=== PATIENT | male | born 1955 | race Caucasian/White ===

== ENCOUNTER → 2019-01-17 09:41 | Outpatient (CLI) | payer BC, SELFPAY ==
--- NOTE | 2019-01-17 09:44 | MR_ITS ---
PROCEDURE: MR LUMBAR SPINE WO CON CLINICAL INDICATION: LEFT LUMBAR RADICULOPATHY Lumbar radiculopathy, left leg tingling and weakness, low back pain the COMPARISON: No exams were available for comparison TECHNIQUE: Standard multiplanar multiecho sequences are performed without contrast. 3-D MIP and myelographic images are also rendered and reviewed FINDINGS: Spinal cord ends at the T12-L1 level. L1-L2: Unremarkable. L2-L3: Minimal bulging disc with mild facet and ligamentum hypertrophy. L3-L4: Mild bulging disc with facet ligamentum hypertrophy. L4-5: Bulging disc with moderate facet and ligamentum hypertrophy with bilateral lateral recess and foraminal narrowing with impingement upon both L5 nerve roots within the lateral recess bilaterally. L5-S1: Mild concentric bulging disc along with facet ligamentum hypertrophy with mild bilateral foraminal narrowing. No spinal stenosis or extruded herniated disc evident. IMPRESSION: 1. L2-L3: Minimal bulging disc with mild facet and ligamentum hypertrophy. 2. L3-L4: Mild bulging disc with facet ligamentum hypertrophy. 3. The L4-5: Bulging disc with moderate facet and ligamentum hypertrophy with bilateral lateral recess and foraminal narrowing with impingement upon both L5 nerve roots within the lateral recess bilaterally. 4. L5-S1: Mild concentric bulging disc along with facet ligamentum hypertrophy with mild bilateral foraminal narrowing. 5. No spinal stenosis or extruded herniated disc evident. Dictated by: Jesse Myers MD 01/19/2019 09:44 Electronically signed by Jesse Myers MD in [place] 01/19/2019 09:44
== END ==
PROVIDERS: PCP Family Medicine; Visit Provider Family Medicine
DX: M54.16 Radiculopathy, lumbar region (principal)
CPT/HCPCS: 72148; 76376

== ENCOUNTER → 2020-02-25 08:30 | Outpatient (CLI) | payer BC, SELFPAY ==
[2020-02-25 08:57] LABS: Basophils # 0.1 K/mm3 (0-0.2); Basophils % 1.5 % (0.1-2.0); Eosinophils # 0.2 K/mm3 (0.0-0.4); Eosinophils % 3.7 % (0.1-12.0); Hematocrit 56.6 % (42.0-52.0); Lymphocytes # 1.5 K/mm3 (0.7-4.5); Mean Corpuscular HGB Conc 33.8 g/dL (31.8-35.4); Mean Corpuscular Hemoglobin 31.8 pg (27.0-31.2); Mean Corpuscular Volume 94.1 fl (80-94); Mean Platelet Volume 8.2 fl (7.4-10.4); Monocytes # 0.4 K/mm3 (0.1-1.0); Monocytes % 6.3 % (1.7-9.3); Neutrophils # 3.8 K/mm3 (1.8-7.8); Neutrophils % 63.6 % (37.0-80.0); Platelet Count 181 K/mm3 (142-424); Red Blood Count 6.02 M/mm3 (4.60-6.20); Red Cell Distribution Width 14.2 % (11.5-17.5)
[2020-02-25 08:59] LABS: Hemoglobin 19.1 g/dL (14.1-18.0)
[2020-02-25 09:24] LABS: Alanine Aminotransferase 19 U/L (12-78); Albumin Level 4.3 g/dl (3.5-5.0); Albumin/Globulin Ratio 1.5 (1.1-1.8); Alkaline Phosphatase 91 U/L (38-126); Anion Gap 10.5 mEq/L (5-15); Aspartate Amino Transferase 22 U/L (17-59); Bilirubin,Total 0.8 mg/dl (0.2-1.3); Blood Urea Nitrogen 13 mg/dl (9-20); Carbon Dioxide 28 mmol/L (22.0-30.0); Chloride 103 mmol/L (98-107); Chol/HDL Ratio 4.9 (1-3.5); Cholesterol 237 mg/dl (140-200); Estimated Glomerular Filt Rate 85 ml/min (>60); GFR (African American) 103 ML/MIN (>60); Globulin 2.8 g/dL (1.3-3.2); Glucose 112 mg/dl (74-100); HDL Cholesterol 48 mg/dl (40-60); Potassium 4.5 mmoL/L (3.5-5.1); Sodium 137 mmol/L (136-145); Total Protein,Serum 7.1 g/dl (6.3-8.2); Triglycerides 148 mg/dl (30-150); VLDL Cholesterol 30 mg/dL (0-40)
[2020-02-25 09:35] LABS: Direct LDL Cholesterol 176.24 mg/dL (100-129)
[2020-02-25 09:55] LABS: Prostate Specific Ag Screen 4.3 ng/ml (0.0-4.0)
== END ==
PROVIDERS: Visit Provider Family Medicine
DX: R07.2 Precordial pain (principal); R59.0 Localized enlarged lymph nodes; E78.5 Hyperlipidemia, unspecified; Z12.5 Encounter for screening for malignant neoplasm of prostate
CPT/HCPCS: 36415; 80053; 80061; 85025; G0103

== ENCOUNTER → 2020-02-28 14:13 | Outpatient (CLI) | payer BC, SELFPAY ==
--- NOTE | 2020-02-28 14:15 | CT_ITS ---
PROCEDURE: CT CHEST W CON CLINCAL INDICATION: AXILLARY ADENOPATHY, in this and swelling left axilla area marked by a BB COMPARISON: No exams were available for comparison TECHNIQUE: IV Contrast: 75ml Isovue 370 Axial images obtained with sagittal and coronal reformats. All CT scans at the facility use one or more dose reduction, viz: automated exposure control, ma/kV adjustment per patient size (including targeted exams where dose is matched to indication, i.e. head), or iterative reconstruction technique. FINDINGS: HEART AND MEDIASTINAL STRUCTURES: Unremarkable. LUNGS AND PLEURAL SPACES: The lung gutierrez are well expanded and appear clear of infiltrate. There are no suspicious pulmonary nodules. There is no pleural fluid. BONY STRUCTURES: There has been previous multilevel surgical procedure cervical spine, thoracic spine appears entirely normal. UPPER ABDOMEN: Unremarkable. ADDITIONAL FINDINGS: The left axillary soft tissues appear grossly normal and comparable to the right side with no obvious abnormal adenopathy or mass or skin thickening. IMPRESSION: Unremarkable CT scan of the chest, no definite abnormality left axillary region Dictated by: Dr. Rigo Christianson MD 03/10/2020 14:30 Dr. Rigo Christianson MD in [place] 03/10/2020 14:30
== END ==
PROVIDERS: PCP Family Medicine; Visit Provider Family Medicine
DX: R59.0 Localized enlarged lymph nodes (principal); Z87.891 Personal history of nicotine dependence
CPT/HCPCS: 71260; Q9967

== ENCOUNTER → 2020-03-25 06:26 | Outpatient (CLI) | payer BC, SELFPAY ==
--- NOTE | 2020-03-25 | CA_ITS ---
APPROVED REPORT Exam: Pharmacologic Technologist: Johnna Allred Ht: 5 ft 9 in Wt: 170 lbs BSA: 1.93 m2 HR: 74 bpm BP: 142/72 mmHg Indications: Precordial chest pain Medical History Medications: Lipitor,,,,, Stress Test Details Test: LEXISCAN HR Resting HR: 82 bpm Max Heart Rate (APMHR): 156 bpm Max HR Achieved: 103 bpm Target HR (85% APMHR): 132 bpm % of APMHR: 66 Recovery HR: 83 bpm BP Resting BP: 142.0/72.0 mmHg Max BP: 165.0/75.0 mmHg Recovery BP: 154.0/83.0 mmHg ECG Clinical Exercise duration: 03:14 min Highest Stage Achieved: Exercise capacity: 1.0 METs Stress ECG Conclusion Resting EKG: Normal sinus rhythm, frequent PVCs in trigeminal pattern, cannot rule out old septal VT. Switched from exercise due to hip and other lower extremity issues. Symptoms: Shortness of air, mild stomach cramps, mild headache. No chest pain. Arrhythmias/Ectopy: Frequent isolated PVCs with periods of bigeminy and trigeminy. ST-T Changes: No significant changes. Conclusion: Unremarkable Lexiscan stress. Myoview images reported separately. Electronically signed by : Robert Ortiz, 03/26/2020 06:20:08
--- NOTE | 2020-03-25 06:35 | NM_ITS ---
APPROVED REPORT Exam: Nuclear Stress Test Indication: chest pain..palptations..fatigue Patient Location: Outpatient Stress Tech: Johnna Allred [place] Tech:Belkis Farrell TITI RT(R)(N) Ht: 5 ft 9 in Wt: 170 lbs HR: 74 bpm BP: 142/72 mmHg BSA: 1.93 m2 BMI: 25.1 History: chest pain..palptations..fatigue Procedure: Patient received a 0.4 mg of intravenous Lexiscan, resting heart rate 74 bpm, resting blood pressure 142/72 mmHg, with Lexiscan maximum heart rate achived was 101 bpm which is Less than 85 % of the maximum predicted heart rate and blood pressure was 156/75 mmHg. With Lexiscan, patient denied any complaint of chest pain. Electrocardiogram Resting electrocardiogram showed sinus rhythm, premature ventricular complexes, with Lexiscan there is less than 1.[address] segment depression noted from the baseline EKG. The EKG portion of the Lexiscan Myoview is nondiagnostic. Frequent premature ventricular complexes were seen throughout the study. Cardiac Stress and Resting SPECT Images: Cardiac Stress and Resting SPECT images were obtained using technetium 99m Myoview 32.9 mCi stress and 10.67 mCi at rest. Gated SPECT for the analysis of segmental wall motion and calculation of the ejection fraction also done. Prone images were also obtained. Cardiac stress and resting SPECT images show uniform myocardial activity without segmental perfusion abnormality, computer derived ejection fraction is less than 30%, left ventricle appears to be globally hypokinetic, right ventricle is mildly enlarged with normal contractility. However during the study frequent premature ventricular complexes present that may underestimate the ejection fraction, and echocardiogram will be better modality to evaluate left ventricular systolic function. Conclusion: 1. The EKG portion of the Lexiscan Myoview is nondiagnostic. 2. No scintigraphic evidence of reversible ischemia seen, left ventricle is mildly dilated both stress and rest, right ventricle is mildly enlarged with normal contractility, computer derived ejection fraction is less than 30%, left ventricle appears to be globally hypokinetic. However during the study frequent premature ventricular complexes present which may underestimate the ejection fraction by gated SPECT, an echocardiogram will be better modality to evaluate left ventricular systolic function. 3. Likely abnormal Lexiscan Myoview study. Electronically signed by : Robert Ortiz, 03/26/2020 06:33:52
--- NOTE | 2020-03-25 11:02 | HMH.ITSHM ---
Current Home Medications as stated by this patient Candido Carrillo or home office representative. [] lipator
== END ==
PROVIDERS: PCP Family Medicine; Visit Provider Family Medicine
DX: R07.2 Precordial pain (principal)
CPT/HCPCS: 78452; 93017; A9502; J2785

== ENCOUNTER → 2020-04-07 13:56 | Outpatient (CLI) | payer BC, SELFPAY ==
[2020-04-07 14:32] LABS: Basophils # 0.1 K/mm3 (0-0.2); Basophils % 1.2 % (0.1-2.0); Eosinophils # 0.3 K/mm3 (0.0-0.4); Eosinophils % 3.4 % (0.1-12.0); Hematocrit 53.7 % (42.0-52.0); Hemoglobin 17.8 g/dL (14.1-18.0); Lymphocytes # 1.8 K/mm3 (0.7-4.5); Lymphocytes % 22.1 % (10-50); Mean Corpuscular HGB Conc 33.2 g/dL (31.8-35.4); Mean Corpuscular Hemoglobin 31.2 pg (27.0-31.2); Mean Corpuscular Volume 93.9 fl (80-94); Mean Platelet Volume 8.5 fl (7.4-10.4); Monocytes # 0.5 K/mm3 (0.1-1.0); Monocytes % 5.7 % (1.7-9.3); Neutrophils # 5.4 K/mm3 (1.8-7.8); Neutrophils % 67.6 % (37.0-80.0); Platelet Count 187 K/mm3 (142-424); Red Blood Count 5.72 M/mm3 (4.60-6.20); Red Cell Distribution Width 14.7 % (11.5-17.5)
[2020-04-07 15:05] LABS: Chloride 103 mmol/L (98-107); Potassium 4.9 mmoL/L (3.5-5.1); Sodium 137 mmol/L (136-145)
[2020-04-07 15:08] LABS: Blood Urea Nitrogen 13 mg/dl (9-20); Estimated Glomerular Filt Rate 85 ml/min (>60); GFR (African American) 103 ML/MIN (>60)
[2020-04-07 15:09] LABS: Anion Gap 10.9 mEq/L (5-15); Calcium 9.1 mg/dl (8.4-10.2); Carbon Dioxide 28 mmol/L (22.0-30.0); Glucose 98 mg/dl (74-100)
[2020-04-07 15:20] LABS: Coronavirus 19 IgG Antibody Negative (Negative); Coronavirus 19 IgM Antibody Negative (Negative)
== END ==
PROVIDERS: Visit Provider Internal Medicine Cardiovascular Disease
DX: Z01.810 Encounter for preprocedural cardiovascular examination (principal); Z20.822 Contact with and (suspected) exposure to COVID-19; I20.8 Other forms of angina pectoris; I42.9 Cardiomyopathy, unspecified; I49.3 Ventricular premature depolarization; R94.31 Abnormal electrocardiogram [ECG] [EKG]; R94.39 Abnormal result of other cardiovascular function study; E78.5 Hyperlipidemia, unspecified; F17.200 Nicotine dependence, unspecified, uncomplicated; Z82.49 Family history of ischemic heart disease and other diseases of the circulatory system
CPT/HCPCS: 36415; 80048; 85025; 86328

== ENCOUNTER 2020-04-08 09:17 | Day surgery (SDC) | payer BC, SELFPAY ==
[2020-04-08] VITALS (13 sets, daily range): BP systolic 105–172; BP diastolic 59–107; PULSE 55–73; RESP 12–20; TEMP 36.2; O2SAT 90–100; BMI 26.3
--- NOTE | 2020-04-08 07:16 | IR_ITS ---
APPROVED REPORT Patient Location: Outpatient PROCEDURES Left heart catheterization Left ventriculogram Selective coronary angiogram Drug-eluting stent deployment to the proximal mid and distal dominant right coronary Drug-eluting stent deployment to the proximal mid left anterior descending artery Drug-eluting stent deployment to the proximal and mid large circumflex artery INDICATION Ischemic cardiomyopathy, High risk abnormal Myoview, Coronary artery disease, Informed consent was obtained prior to the procedure. COMPLICATIONS NONE Estimated Blood Loss: LESS THAN 10 ML TECHNIQUE One percent lidocaine used to anesthetize the right anterior aspect of the wrist. The right radial artery was accessed via the Seldinger technique. A 6 Arabic sheath was placed in the right radial artery. 2.5 mg of verapamil, 800 mcg of nitroglycerin, 1mg Lidocaine and 5000 U Heparin were given through the arterial sheath. The trap catheter was also used to perform left heart catheterization, left ventriculogram and selective coronary angiogram. At the end of the diagnostic angiogram therapeutic heparin was administered producing a therapeutic ACT. The Poppa catheter was placed in the right coronary artery and a Choice PT extra-support wire was placed distally. A 3 mm x 30 mm resolute vincent stent was deployed in the distal right coronary artery which extended into a large posterior lateral branch and deployed at 20 batool. An additional 4 mm x 38 mm resolute vincent stent was placed proximal to this overlapping the first stent that was placed and deployed at 20 batool. Excellent angiographic results were obtained with JEANCARLOS-3 flow down the vessel before and after the procedure. There was slight 40% jailing of the large posterior descending artery with persistent JEANCARLOS-3 flow. Following this the apparatus was removed and the catheter was placed in left main artery and the same wire was placed in the LAD. A 3 mm x 38 mm resolute vincent stent was placed in the mid LAD and deployed at 16 batool reducing the stenosis. An additional 3 mm x 15 mm resolute vincent stent was placed proximal to the first stent and still overlapping it and deployed at 20 batool. JEANCARLOS-3 flow was present before and after the procedure. Wire was pulled back and placed in the circumflex artery where 3 mm x 38 mm resolute Vernon stent was then deployed in the proximal to mid circumflex artery at 20 batool reducing the multiple severe stenosis to less than 10%. JEANCARLOS-3 flow was present before and after the procedure. At the end the procedure the apparatus was removed the sheath was removed and hemostasis was achieved using TR banding patient was transferred the postop putting her in stable condition ANGIOGRAPHIC RESULTS The left main artery Normal The left anterior descending artery Has proximal 10 to 20% stenosis followed by 50% mid vessel stenoses followed by an additional 70 to 80% mid vessel stenosis The circumflex artery Is nondominant still large vessel with a proximal 70 followed by an additional 70 and 50% stenosis in the large solitary first obtuse marginal artery The right coronary artery Is a large dominant vessel and has proximal 50% stenosis followed by mid vessel 70% stenosis followed by a 90% stenosis in a large posterior lateral branch. A long posterior descending artery has mild ostial disease with a 40% jailing at the end of the procedure The GARCIA ventriculogram reveals Dilated ventricle ejection fraction 40% The left ventricular end-diastolic pressure 20 mmHg IMPRESSION Severe three-vessel coronary disease as described above Successful complete percutaneous revascularization involving the proximal mid distal dominant right coronary artery which extended
--- NOTE | 2020-04-08 14:44 | HMH.PHACLD ---
Candido Carrillo has received discharge medication counseling on the following medications: CONTINUED MEDICATIONS: METOPROLOL, ATORVASTATIN NEW MEDICATIONS: BRILINTA, ASPIRIN, RAMIPRIL
[2020-04-08 15:24] LABS: CATHL Activated Clotting Time 363 SEC (74-125)
== END 2020-04-08 16:33 ==
PROVIDERS: PCP Family Medicine; Visit Provider Internal Medicine
DX: I25.5 Ischemic cardiomyopathy (principal); I25.118 Atherosclerotic heart disease of native coronary artery with other forms of angina pectoris; I49.3 Ventricular premature depolarization; Z72.0 Tobacco use; R94.39 Abnormal result of other cardiovascular function study; E78.5 Hyperlipidemia, unspecified; Z79.02 Long term (current) use of antithrombotics/antiplatelets; Z79.82 Long term (current) use of aspirin; Z79.899 Other long term (current) drug therapy
CPT/HCPCS: 85347; 92928; 93458; 99152; 99153; C1725; C1769; C1876; C9600; J1644; Q9967

== ENCOUNTER → 2020-04-17 10:38 | Outpatient (CLI) | payer BC, SELFPAY ==
[2020-04-17 11:18] LABS: Basophils # 0.1 K/mm3 (0-0.2); Basophils % 1.2 % (0.1-2.0); Eosinophils # 0.2 K/mm3 (0.0-0.4); Eosinophils % 3.7 % (0.1-12.0); Hematocrit 52.8 % (42.0-52.0); Lymphocytes # 1.5 K/mm3 (0.7-4.5); Lymphocytes % 23.1 % (10-50); Mean Corpuscular HGB Conc 32.1 g/dL (31.8-35.4); Mean Corpuscular Hemoglobin 30.3 pg (27.0-31.2); Mean Corpuscular Volume 94.2 fl (80-94); Mean Platelet Volume 8.4 fl (7.4-10.4); Monocytes # 0.5 K/mm3 (0.1-1.0); Monocytes % 7.3 % (1.7-9.3); Neutrophils # 4.2 K/mm3 (1.8-7.8); Neutrophils % 64.7 % (37.0-80.0); Platelet Count 190 K/mm3 (142-424); Red Cell Distribution Width 13.9 % (11.5-17.5); White Blood Count 6.5 K/mm3 (4.8-10.8)
[2020-04-17 11:35] LABS: Chloride 101 mmol/L (98-107)
[2020-04-17 11:36] LABS: Sodium 139 mmol/L (136-145)
[2020-04-17 11:38] LABS: Blood Urea Nitrogen 15 mg/dl (9-20); Estimated Glomerular Filt Rate 85 ml/min (>60); GFR (African American) 103 ML/MIN (>60)
[2020-04-17 11:39] LABS: Calcium 9.6 mg/dl (8.4-10.2); Carbon Dioxide 30 mmol/L (22.0-30.0); Glucose 105 mg/dl (74-100)
== END ==
PROVIDERS: Visit Provider Internal Medicine Cardiovascular Disease
DX: Z95.5 Presence of coronary angioplasty implant and graft (principal)
CPT/HCPCS: 36415; 80048; 85025

== ENCOUNTER → 2020-04-30 11:08 | Outpatient (CLI) | payer BC, SELFPAY ==
--- NOTE | 2020-04-30 11:08 | CA_ITS ---
APPROVED REPORT EXAM: Comprehensive 2D, Doppler, and color-flow Echocardiogram Furniture Sander: Shanel Calles RVT Ht: 5 ft 8 in Wt: 172lbs BSA: 1.92 BP: 119/62 mmHg Indications: SOA,CP,CM,ABN EKG,5 STENTS 3 WKS AGO,CAD,HLD 2D Dimensions LVOT 1.83 cm (M/F) 1.5-2.5 LA Volume 29.50 mL LA Volume Index 15.44 mL/m2 (M/F) 16-34 M-Mode Dimensions RVDd 2.69 cm (0.9-2.6) LA Diam 3.89 cm (1.9-4.0) LVDd 5.58 cm (3.5-5.7) Ao Diam 3.43 cm (2.0-3.7) LVDs 4.34 cm (3.5-5.7) IVSd 0.72 cm (0.6-1.1) PWd 0.88 cm (0.6-1.1) EF (Teich) 44.30% FS 22.20% EDV (Teich) 152.40 mL TAPSE 1.37 (<1.7) ESV (Teich) 84.90 mL LV Diastology E Decel Time 157.00 (160-240 msec) E/A Ratio 1.2 MED E' 6.00 (< 7 cm/sec) E'/MED E' Ratio 13.52 (>14) LAT E' 9.50 (<10 cm/sec) E/LAT E' Ratio 8.54 (>14) Aortic Valve AO Peak GR. 4.50 mmHg Mitral Valve MV E Max Sumeet. 81.00 (40-130 cm/s) MV A Velocity 69.00 (40-130 cm/s) E/A Ratio 1.18 MV Decel. Time 157.00 (160-240 ms) MV PHT 46.00 ms Pulmonary Valve PV Peak Velocity 105.00 (50-150 cm/s) Tricuspid Valve TR P. Velocity 204.00 cm/s RAP Estimate 10.00 mmHg RVSP 26.70 mmHg Left Ventricle Left atrium is qualitatively mildly enlarged, left ventricle is normal size, mild qualitative concentric left ventricular hypertrophy, visually estimated ejection fraction 55% with no regional wall motion abnormality, grade 1 diastolic dysfunction seen without tissue Doppler evidence of raise left atrial pressure. Right Ventricle Right atrium and right ventricle are normal size and contractility. Aortic Valve Aortic valve is minimally thickened and fibrosed, there is no aortic stenosis or aortic insufficiency. Mitral Valve Mitral valve leaflets are minimally thickened, there is no mitral stenosis, there is trace mitral regurgitation. Tricuspid Valve Tricuspid valve grossly normal, there is trace tricuspid regurgitation, tricuspid regurgitation jet velocity is inadequate for calculation of the right ventricular systolic pressure. Pulmonic Valve Pulmonic valve is poorly visualized. Great Vessels Aortic root is normal size. Pericardium No significant pericardial effusion noted. Conclusion 1. Qualitatively mildly enlarged left atrium, normal left ventricular size, mild concentric left ventricular hypertrophy, visually estimated ejection fraction 55% with no regional wall motion abnormality, grade 1 diastolic dysfunction seen without tissue Doppler evidence of raise left atrial pressure. 2. Trace mitral and tricuspid regurgitation. 3. No significant pericardial effusion noted. Electronically signed by : Robert Ortiz, 05/01/2020 11:36:05
== END ==
PROVIDERS: PCP Family Medicine; Visit Provider Internal Medicine Cardiovascular Disease
DX: R07.9 Chest pain, unspecified (principal); R94.31 Abnormal electrocardiogram [ECG] [EKG]; I25.118 Atherosclerotic heart disease of native coronary artery with other forms of angina pectoris; I42.9 Cardiomyopathy, unspecified; I49.3 Ventricular premature depolarization; E78.5 Hyperlipidemia, unspecified; F17.200 Nicotine dependence, unspecified, uncomplicated; Z82.49 Family history of ischemic heart disease and other diseases of the circulatory system
CPT/HCPCS: 93306

== ENCOUNTER 2020-05-02 10:02 | Outpatient (RCR) | payer BC, SELFPAY | END 2020-09-19 10:40 | disposition home or self-care (01) | LOC: PT 10:02 | PROVIDERS: Visit Provider Internal Medicine | DX: I25.118 Atherosclerotic heart disease of native coronary artery with other forms of angina pectoris (principal); R07.9 Chest pain, unspecified; E78.5 Hyperlipidemia, unspecified; R94.31 Abnormal electrocardiogram [ECG] [EKG]; F17.200 Nicotine dependence, unspecified, uncomplicated; Z82.49 Family history of ischemic heart disease and other diseases of the circulatory system | CPT/HCPCS: 93798 ==

== ENCOUNTER → 2020-05-02 11:12 | Outpatient (CLI) | payer BC, SELFPAY | PROVIDERS: PCP Family Medicine; Visit Provider Internal Medicine Cardiovascular Disease | DX: G47.33 Obstructive sleep apnea (adult) (pediatric) (principal); R06.83 Snoring; R40.0 Somnolence | CPT/HCPCS: G0399 ==

== ENCOUNTER → 2020-05-27 07:22 | Outpatient (CLI) | payer BC, SELFPAY ==
--- NOTE | 2020-05-27 | CA_ITS ---
APPROVED REPORT Exam: Exercise Treadmill Technologist: Johnna Allred, Ht: 5 ft 8 in Wt: 174 lbs BSA: 1.93 m2 HR: 62 bpm BP: 159/69 mmHg Indications: Chest pain Medical History Medications: Aspirin,,,,, Metoprolol,,,,, Pantoprazole,,,,, Atorvastatin,,,,, Ticagrelor,,,,, Ramipril,,,,, CeleBREX,,,,, Nitroglycerin,,,,, Stress Test Details Test: Manual Treadmill HR Resting HR: 65 bpm Max Heart Rate (APMHR): 156.707585 bpm Max HR Achieved: 105 bpm Target HR (85% APMHR): 132.979207 bpm % of APMHR: 67.31 Recovery HR: 62 bpm BP Resting BP: 159/69 mmHg Max BP: 208/75 mmHg Recovery BP: 173.0/73.0 mmHg ECG Clinical Exercise duration: 05:46 min Highest Stage Achieved: Exercise capacity: 5.5 METs Stress ECG Conclusion Max HR - 101; %of PM - 65%; Max B/P - 208/75: METS - 5.5: Test stopped due to SOA and fatigue. Symptoms - chest pain with exercise{mild}, resolving in recovery. Frequent isolated PVC's, rare PAC. In recovery there is 0.75mm of downsloping ST depression in the anterolateral leads. Conclusion: Non diagnostic GXT due to blunted HR response on Betablocker. Mild chest pain and frequent PVC's during exercise. Myoview images reported separately. Test Summary REST 04:34 0.0 0.0 65 . 159/ 69 . . Stage 1 01:00 10.0 1.7 78 . . . . Stage 1 02:00 10.0 1.7 85 . . . . Stage 1 03:00 10.0 1.7 89 . 194/ 90 . . Stage 2 . . . . . . . Protocol changed to Manual Treadmill Stage 2 01:00 5.0 2.5 96 . . . . Stage 2 . . . . . . . Myoview Injected Stage 2 02:00 5.0 2.0 91 . . . . Stage 2 . . . . . . . Chest pain Stage 2 02:46 5.0 2.0 101 . . . Stop exercise at 05:46 RECOVERY 01:00 0.0 0.0 85 . . . . RECOVERY 02:00 0.0 0.0 69 . . . . RECOVERY 03:00 0.0 0.0 63 . 203/ 72 . . RECOVERY 04:00 0.0 0.0 62 . 203/ 72 . . RECOVERY 05:00 0.0 0.0 60 . 208/ 75 . . RECOVERY 06:00 0.0 0.0 70 . 207/ 78 . . RECOVERY 07:00 0.0 0.0 61 . 207/ 78 . . RECOVERY 08:00 0.0 0.0 61 . 173/ 73 . . RECOVERY 09:00 0.0 0.0 65 . 173/ 73 . . RECOVERY 10:00 0.0 0.0 61 . 173/ 73 . . RECOVERY 11:00 0.0 0.0 60 . 173/ 73 . . RECOVERY 11:28 0.0 0.0 62 . 168/ 77 . . Electronically signed by : Robert Ortiz, 05/27/2020 19:37:37
--- NOTE | 2020-05-27 07:32 | NM_ITS ---
APPROVED REPORT Exam: Nuclear Stress Test Indication: Chest pain, CAD, High cholesterol, Former tobacco use, Family history Patient Location: Outpatient Stress Tech: Jennifer Smith [place] Tech:Ev San, ARRT, RT (R)(N) Ht: 5 ft 9 in Wt: 170 lbs HR: 62 bpm BP: 159/69 mmHg BSA: 1.93 m2 BMI: 25.1 History: Chest pain, CAD, High cholesterol, Former tobacco use, Family history Procedure: Patient exercised on Cornelius protocol 5:46 minutes and sec, resting heart rate 62 bpm, resting blood pressure 159/69 mmHg, with exercise maximum heart rate achived was 101 bpm which is 65 % of the maximum predicted heart rate and blood pressure was 208/75 mmHg. Test was stopped due to SOA and fatigue. Patient has Poor exercise capacity, achieved 5.5 METs of workload on treadmill, the blood pressure response to exercise was Hypertensive. Electrocardiogram Resting electrocardiogram showed sinus rhythm with premature ventricular complexes, with exercise less than 1.[address] segment depression noted from the baseline EKG. The EKG portion of the exercise Myoview is nondiagnostic as patient did not achieve the target heart rate. Cardiac Stress and Resting SPECT Images: Cardiac Stress and Resting SPECT images were obtained using technetium 99m Myoview 30.0 mCi stress and 10.47 mCi at rest. Gated SPECT for analysis of segmental wall motion and calculation of the ejection fraction also done. Prone images were also obtained. Cardiac stress and resting SPECT images show reversible ischemia involving the anterolateral wall, there is transient ischemic dilatation of the left ventricle seen raising the concerns for presence of multivessel coronary artery disease. Computer derived ejection fraction is 43% with moderate anterolateral wall hypokinesis. Right ventricle is mildly enlarged with normal contractility. Conclusion: 1. The EKG portion of the exercise Myoview is nondiagnostic due to baseline abnormal EKG and patient not achieving the target heart rate. Patient has good exercise capacity achieved 5.5 METs of workload on treadmill, the blood pressure response to exercise was hypertensive, patient complained of chest pain with exercise relieved with rest. 2. Scintigraphic evidence of reversible ischemia involving the anterolateral wall, there is transient ischemic dilatation of the left ventricle seen, raising the concerns for presence of multivessel coronary disease, computer derived ejection fraction is 43% with moderate anterolateral wall hypokinesis, right ventricle is mildly enlarged with normal contractility. 3. Abnormal exercise Myoview study. Electronically signed by : Robert Ortiz, 05/27/2020 19:50:38
--- NOTE | 2020-05-27 09:28 | HMH.ITSHM ---
Current Home Medications as stated by this patient Candido Carrillo or sales representatives. []LIPITOR METOPROLOL BRILINTA ALTACE ASA CELECOXIB
== END ==
PROVIDERS: PCP Family Medicine; Visit Provider Physician Assistant
DX: I20.8 Other forms of angina pectoris (principal)
CPT/HCPCS: 78452; 93017; A9502

== ENCOUNTER → 2020-05-30 11:55 | Outpatient (CLI) | payer BC, SELFPAY ==
[2020-05-30 12:42] LABS: Chloride 107 mmol/L (98-107)
[2020-05-30 12:43] LABS: Potassium 4.5 mmoL/L (3.5-5.1); Sodium 140 mmol/L (136-145)
[2020-05-30 12:45] LABS: Blood Urea Nitrogen 13 mg/dl (9-20); Estimated Glomerular Filt Rate 85 ml/min (>60); GFR (African American) 103 ML/MIN (>60)
[2020-05-30 12:46] LABS: Anion Gap 11.5 mEq/L (5-15); Calcium 9.4 mg/dl (8.4-10.2); Carbon Dioxide 26 mmol/L (22.0-30.0); Glucose 117 mg/dl (74-100)
[2020-05-30 13:02] LABS: Basophils # 0.1 K/mm3 (0-0.2); Eosinophils # 0.3 K/mm3 (0.0-0.4); Eosinophils % 3.3 % (0.1-12.0); Hematocrit 52.1 % (42.0-52.0); Hemoglobin 16.8 g/dL (14.1-18.0); Lymphocytes # 1.8 K/mm3 (0.7-4.5); Lymphocytes % 20.8 % (10-50); Mean Corpuscular HGB Conc 32.3 g/dL (31.8-35.4); Mean Corpuscular Hemoglobin 30.4 pg (27.0-31.2); Mean Corpuscular Volume 94.1 fl (80-94); Mean Platelet Volume 8.6 fl (7.4-10.4); Monocytes # 0.6 K/mm3 (0.1-1.0); Monocytes % 7.4 % (1.7-9.3); Neutrophils # 5.7 K/mm3 (1.8-7.8); Neutrophils % 67.5 % (37.0-80.0); Platelet Count 159 K/mm3 (142-424); Red Blood Count 5.53 M/mm3 (4.60-6.20); Red Cell Distribution Width 14.6 % (11.5-17.5); White Blood Count 8.4 K/mm3 (4.8-10.8)
== END ==
PROVIDERS: PCP Family Medicine; Visit Provider Internal Medicine Cardiovascular Disease
DX: Z20.822 Contact with and (suspected) exposure to COVID-19 (principal); I20.0 Unstable angina; I20.8 Other forms of angina pectoris; I42.9 Cardiomyopathy, unspecified; I49.3 Ventricular premature depolarization; R94.31 Abnormal electrocardiogram [ECG] [EKG]; R94.39 Abnormal result of other cardiovascular function study; E78.5 Hyperlipidemia, unspecified; F17.200 Nicotine dependence, unspecified, uncomplicated
CPT/HCPCS: 36415; 80048; 85025; U0003

== ENCOUNTER 2020-06-02 09:31 | Day surgery (SDC) | payer BC, SELFPAY ==
[2020-06-02] VITALS (14 sets, daily range): BP systolic 104–159; BP diastolic 50–94; PULSE 50–63; RESP 13–18; TEMP 36.6; O2SAT 94–100; BMI 26.6
--- NOTE | 2020-06-02 07:03 | IR_ITS ---
APPROVED REPORT Patient Location: Outpatient Board Winder: TITI Andre RT (R) PROCEDURES Left heart catheterization Left ventriculogram Selective coronary angiogram INDICATION Known coronary artery disease, Recurrent angina pectoris, High risk abnormal Myoview Informed consent was obtained prior to the procedure. COMPLICATIONS None Estimated Blood Loss: Less than 10mls TECHNIQUE One percent lidocaine used to anesthetize the right anterior aspect of the wrist. The right radial artery was accessed via the Seldinger technique. A 6 Vietnamese sheath was placed in the right radial artery. 2.5 mg of verapamil, 800 mcg of nitroglycerin, 1mg Lidocaine and 5000 U Heparin were given through the arterial sheath. The trap catheter was also used to perform left heart catheterization, left ventriculogram and selective coronary angiogram. At the end of the procedure the sheath was removed good hemostasis was achieved using Traclet band, patient was transferred to the postop holding area in stable condition. ANGIOGRAPHIC RESULTS The left main artery Normal The left anterior descending artery Has a stent in the proximal through middle segment which is widely patent free of in-stent restenosis with excellent proximal distal transitioning. A small to moderate first diagonal artery is jailed with stents however angiographically shows no stenosis with normal JEANCARLOS-3 flow The circumflex artery Is a nondominant vessel which has a stent in the proximal segment which extends throughout the mid segment into a large first obtuse marginal artery. The stent is widely patent free of in-stent restenosis with excellent proximal distal transitioning The right coronary artery Is a dominant vessel with a widely patent stent in the proximal to mid segment with no angiographic evidence of in-stent restenosis and excellent proximal distal transitioning. Distally there are 20 and 30% stenoses The GARCIA ventriculogram reveals Normal 65% The left ventricular end-diastolic pressure 22 mmHg IMPRESSION Widely patent stents as described above Normal ejection fraction Elevated LVEDP which likely accounts for patient's angina pectoris PLAN 1. Continue medical management for coronary artery disease Electronically signed by : Brenden Coleman, 06/02/2020 14:06:28
== END 2020-06-02 15:26 | disposition home or self-care (01) ==
LOC: CATHLAB 09:31
PROVIDERS: PCP Family Medicine; Visit Provider Internal Medicine
DX: I25.110 Atherosclerotic heart disease of native coronary artery with unstable angina pectoris (principal); E78.5 Hyperlipidemia, unspecified; F17.200 Nicotine dependence, unspecified, uncomplicated; I42.9 Cardiomyopathy, unspecified; R94.31 Abnormal electrocardiogram [ECG] [EKG]; R94.39 Abnormal result of other cardiovascular function study; Z82.49 Family history of ischemic heart disease and other diseases of the circulatory system; Z95.5 Presence of coronary angioplasty implant and graft; Z79.899 Other long term (current) drug therapy
CPT/HCPCS: 93458; 99152; C1725; C1769; J1644; Q9967

== ENCOUNTER → 2020-06-19 09:02 | Outpatient (CLI) | payer BC, SELFPAY ==
[2020-06-19 10:07] LABS: Chloride 104 mmol/L (98-107); Potassium 5.2 mmoL/L (3.5-5.1); Sodium 138 mmol/L (136-145)
[2020-06-19 10:09] LABS: Alanine Aminotransferase 24 U/L (12-78); Aspartate Amino Transferase 27 U/L (17-59); Bilirubin,Unconjugated 1.3 mg/dL (0.0-1.1); Blood Urea Nitrogen 20 mg/dl (9-20); Estimated Glomerular Filt Rate 85 ml/min (>60); GFR (African American) 103 ML/MIN (>60)
[2020-06-19 10:10] LABS: Albumin Level 4.6 g/dl (3.5-5.0); Alkaline Phosphatase 115 U/L (38-126); Anion Gap 12.2 mEq/L (5-15); Bilirubin,Indirect 1.3 mg/dL (0.0-0.9); Bilirubin,Total 1.3 mg/dl (0.2-1.3); Calcium 9.8 mg/dl (8.4-10.2); Carbon Dioxide 27 mmol/L (22.0-30.0); Chol/HDL Ratio 2.7 (1-3.5); Cholesterol 134 mg/dl (140-200); Glucose 115 mg/dl (74-100); HDL Cholesterol 50 mg/dl (40-60); Total Protein,Serum 7.5 g/dl (6.3-8.2); Triglycerides 96 mg/dl (30-150); VLDL Cholesterol 19 mg/dL (0-40)
[2020-06-19 10:21] LABS: Direct LDL Cholesterol 65.35 mg/dL (100-129)
== END ==
PROVIDERS: Urology; Visit Provider Internal Medicine Cardiovascular Disease
DX: R07.89 Other chest pain (principal); E78.5 Hyperlipidemia, unspecified; I25.118 Atherosclerotic heart disease of native coronary artery with other forms of angina pectoris; R94.30 Abnormal result of cardiovascular function study, unspecified; R94.31 Abnormal electrocardiogram [ECG] [EKG]; F17.200 Nicotine dependence, unspecified, uncomplicated
CPT/HCPCS: 36415; 80048; 80061; 80076

== ENCOUNTER → 2020-06-30 09:41 | Outpatient (CLI) | payer BC, SELFPAY ==
[2020-06-30 11:44] LABS: Chloride 106 mmol/L (98-107); Potassium 4.7 mmoL/L (3.5-5.1); Sodium 138 mmol/L (136-145)
[2020-06-30 11:47] LABS: Blood Urea Nitrogen 12 mg/dl (9-20); Estimated Glomerular Filt Rate 97 ml/min (>60); GFR (African American) 118 ML/MIN (>60)
[2020-06-30 11:48] LABS: Anion Gap 12.7 mEq/L (5-15); Calcium 9.6 mg/dl (8.4-10.2); Carbon Dioxide 24 mmol/L (22.0-30.0); Glucose 118 mg/dl (74-100)
== END ==
PROVIDERS: Visit Provider Nurse Practitioner Family
DX: R07.9 Chest pain, unspecified (principal); I25.10 Atherosclerotic heart disease of native coronary artery without angina pectoris; R94.31 Abnormal electrocardiogram [ECG] [EKG]; R94.30 Abnormal result of cardiovascular function study, unspecified; E78.5 Hyperlipidemia, unspecified; F17.200 Nicotine dependence, unspecified, uncomplicated
CPT/HCPCS: 36415; 80048

== ENCOUNTER → 2020-07-10 20:16 | Outpatient (CLI) | payer BC, SELFPAY | PROVIDERS: PCP Family Medicine; Visit Provider Nurse Practitioner Family | DX: G47.33 Obstructive sleep apnea (adult) (pediatric) (principal) | CPT/HCPCS: 95811 ==

== ENCOUNTER → 2020-07-18 09:51 | Outpatient (CLI) | payer BC, SELFPAY ==
[2020-07-18 10:46] LABS: Chloride 100 mmol/L (98-107); Sodium 136 mmol/L (136-145)
[2020-07-18 10:47] LABS: Potassium 5.2 mmoL/L (3.5-5.1)
[2020-07-18 10:50] LABS: Anion Gap 18.2 mEq/L (5-15); Blood Urea Nitrogen 13 mg/dl (9-20); Calcium 9.5 mg/dl (8.4-10.2); Carbon Dioxide 23 mmol/L (22.0-30.0); Estimated Glomerular Filt Rate 75 ml/min (>60); GFR (African American) 91 ML/MIN (>60); Glucose 89 mg/dl (74-100)
== END ==
PROVIDERS: Visit Provider Internal Medicine Cardiovascular Disease
DX: R07.89 Other chest pain (principal); I25.118 Atherosclerotic heart disease of native coronary artery with other forms of angina pectoris; E78.5 Hyperlipidemia, unspecified; R94.30 Abnormal result of cardiovascular function study, unspecified; R94.31 Abnormal electrocardiogram [ECG] [EKG]; F17.200 Nicotine dependence, unspecified, uncomplicated
CPT/HCPCS: 36415; 80048

== ENCOUNTER → 2020-07-31 12:38 | Outpatient (CLI) | payer BC, SELFPAY ==
[2020-07-31 13:25] LABS: Chloride 102 mmol/L (98-107); Sodium 135 mmol/L (136-145)
[2020-07-31 13:26] LABS: Potassium 5.6 mmoL/L (3.5-5.1)
[2020-07-31 13:29] LABS: Anion Gap 11.6 mEq/L (5-15); Blood Urea Nitrogen 18 mg/dl (9-20); Calcium 9.3 mg/dl (8.4-10.2); Carbon Dioxide 27 mmol/L (22.0-30.0); Estimated Glomerular Filt Rate 85 ml/min (>60); GFR (African American) 103 ML/MIN (>60); Glucose 96 mg/dl (74-100)
== END ==
PROVIDERS: Visit Provider Physician Assistant
DX: I10 Essential (primary) hypertension (principal)
CPT/HCPCS: 36415; 80048

== ENCOUNTER → 2020-08-08 10:48 | Outpatient (CLI) | payer BC, SELFPAY ==
[2020-08-08 13:05] LABS: Anion Gap 11.9 mEq/L (5-15); Blood Urea Nitrogen 16 mg/dl (9-20); Calcium 9.4 mg/dl (8.4-10.2); Carbon Dioxide 26 mmol/L (22.0-30.0); Chloride 103 mmol/L (98-107); Estimated Glomerular Filt Rate 75 ml/min (>60); GFR (African American) 91 ML/MIN (>60); Glucose 104 mg/dl (74-100); Potassium 4.9 mmoL/L (3.5-5.1); Sodium 136 mmol/L (136-145)
== END ==
PROVIDERS: Visit Provider Internal Medicine Cardiovascular Disease
DX: I25.10 Atherosclerotic heart disease of native coronary artery without angina pectoris (principal); I42.9 Cardiomyopathy, unspecified; F17.200 Nicotine dependence, unspecified, uncomplicated; G47.33 Obstructive sleep apnea (adult) (pediatric)
CPT/HCPCS: 36415; 80048

== ENCOUNTER → 2020-12-31 11:01 | Outpatient (CLI) | payer MEDICARE, BC, SELFPAY ==
[2020-12-31 12:48] LABS: Alanine Aminotransferase 22 U/L (12-78); Albumin Level 4.2 g/dl (3.5-5.0); Albumin/Globulin Ratio 1.4 (1.1-1.8); Alkaline Phosphatase 93 U/L (38-126); Anion Gap 12.5 mEq/L (5-15); Aspartate Amino Transferase 23 U/L (17-59); Bilirubin,Total 0.5 mg/dl (0.2-1.3); Blood Urea Nitrogen 10 mg/dl (9-20); Calcium 9.6 mg/dl (8.4-10.2); Carbon Dioxide 30 mmol/L (22.0-30.0); Chloride 103 mmol/L (98-107); Chol/HDL Ratio 2.8 (1-3.5); Cholesterol 146 mg/dl (140-200); Estimated Glomerular Filt Rate 85 ml/min (>60); GFR (African American) 103 ML/MIN (>60); Globulin 2.9 g/dL (1.3-3.2); Glucose 117 mg/dl (74-100); HDL Cholesterol 53 mg/dl (40-60); Potassium 5.5 mmoL/L (3.5-5.1); Sodium 140 mmol/L (136-145); Total Protein,Serum 7.1 g/dl (6.3-8.2); Triglycerides 82 mg/dl (30-150); VLDL Cholesterol 16 mg/dL (0-40)
[2020-12-31 12:59] LABS: Direct LDL Cholesterol 75.42 mg/dL (100-129)
[2020-12-31 13:18] LABS: Prostate Specific Ag Screen 4.3 ng/ml (0.0-4.0)
== END ==
PROVIDERS: Visit Provider Family Medicine
DX: I25.118 Atherosclerotic heart disease of native coronary artery with other forms of angina pectoris (principal); I42.9 Cardiomyopathy, unspecified; E78.5 Hyperlipidemia, unspecified; Z12.5 Encounter for screening for malignant neoplasm of prostate
CPT/HCPCS: 36415; 80053; 80061; G0103

== ENCOUNTER → 2021-02-20 10:27 | Outpatient (CLI) | payer MEDICARE, BC, SELFPAY ==
[2021-02-20 11:31] LABS: Chloride 104 mmol/L (98-107); Potassium 5.2 mmoL/L (3.5-5.1); Sodium 141 mmol/L (136-145)
[2021-02-20 11:34] LABS: Blood Urea Nitrogen 28 mg/dl (9-20); Estimated Glomerular Filt Rate 67 ml/min (>60); GFR (African American) 82 ML/MIN (>60)
[2021-02-20 11:35] LABS: Anion Gap 12.2 mEq/L (5-15); Calcium 9.4 mg/dl (8.4-10.2); Carbon Dioxide 30 mmol/L (22.0-30.0); Glucose 112 mg/dl (74-100)
== END ==
PROVIDERS: Visit Provider Internal Medicine Cardiovascular Disease
DX: E78.5 Hyperlipidemia, unspecified (principal); E87.5 Hyperkalemia; F17.200 Nicotine dependence, unspecified, uncomplicated; I25.118 Atherosclerotic heart disease of native coronary artery with other forms of angina pectoris; I42.9 Cardiomyopathy, unspecified; R94.30 Abnormal result of cardiovascular function study, unspecified
CPT/HCPCS: 36415; 80048

== ENCOUNTER → 2021-03-03 14:40 | Outpatient (CLI) | payer MEDICARE, BC, SELFPAY ==
[2021-03-03 15:31] LABS: Anion Gap 9.2 mEq/L (5-15); Blood Urea Nitrogen 23 mg/dl (9-20); Calcium 8.9 mg/dl (8.4-10.2); Carbon Dioxide 30 mmol/L (22.0-30.0); Chloride 102 mmol/L (98-107); Estimated Glomerular Filt Rate 85 ml/min (>60); GFR (African American) 103 ML/MIN (>60); Glucose 107 mg/dl (74-100); Potassium 4.2 mmoL/L (3.5-5.1); Sodium 137 mmol/L (136-145)
== END ==
PROVIDERS: Physician Assistant; Visit Provider Surgery
DX: Z01.812 Encounter for preprocedural laboratory examination (principal); Z11.52 Encounter for screening for COVID-19; Z12.11 Encounter for screening for malignant neoplasm of colon
CPT/HCPCS: 36415; 80048; C9803; U0003; U0005

== ENCOUNTER → 2021-03-05 09:52 | Day surgery (SDC) | payer MEDICARE, BC, SELFPAY ==
[2021-03-02 13:19] VITALS: BMI 25.5
[2021-03-05 10:13] VITALS: BP 150/57; PULSE 67; RESP 18; TEMP 36.7; O2SAT 98
[2021-03-05 10:34] VITALS: O2SAT 97
[2021-03-05 11:14] VITALS: BP 96/56; PULSE 56; RESP 18; TEMP 36.2; O2SAT 96
--- NOTE | 2021-03-05 11:18 | HMH.SCOPE ---
- Procedure: Date: 03/05/21 Patient Date of :: 1955 Procedure Performed:: Colonoscopy with polypectomy Indications:: Screening; positive Cologuard Performing Provider:: Cory Vera MD Referring Provider:: . Sedation:: Monitored anesthesia care Procedure:: After informed consent was obtained the patient was taken to the endoscopy suite. Sedation ensued after the patient was transferred to the left lateral decubitus position. Pulse, blood pressure, and oxygen saturation were monitored throughout the procedure. Digital rectal exam revealed no significant abnormality. The colonoscope was placed in position. The entire colon was evaluated. The colonoscope was carefully removed and the patient was transferred to recovery in stable condition. Please see findings and specimens below for detail. Findings:: Hemorrhoidal tag/cushions Bowel preparation fair to moderate Fairly profound spasticity/lack of relaxation Fairly significant sigmoid diverticulosis Polyps (see specimens) Specimens:: Sessile polyp at 45 cm (snare) Cluster of polyps between 10-20 cm (multiple biopsies) Anal canal polyp Recommendations:: Follow-up pathology Consider barium enema secondary to positive Cologuard and limitations in visualization secondary to fairly profound spasticity/lack of relaxation. Timing of repeat colonoscopy is pending pathology and also barium enema (if completed) but will likely be between 1-2 years. Complications:: No immediate Estimated blood obtained (mL): 1
[2021-03-05 11:31] VITALS: BP 109/51; PULSE 55; RESP 20; TEMP 36.2; O2SAT 98
[2021-03-05 11:41] VITALS: BP 113/79; PULSE 65; RESP 20; TEMP 36.2; O2SAT 96
== END ==
PROVIDERS: PCP Family Medicine; Visit Provider Surgery
PROC: 0DJD8ZZ Inspection of Lower Intestinal Tract, Via Natural or Artificial Opening Endoscopic (ICD-10-PCS; principal; 2021-03-05 11:00)
DX: K56.2 Volvulus (principal); K57.32 Diverticulitis of large intestine without perforation or abscess without bleeding; K62.1 Rectal polyp; K63.5 Polyp of colon; K64.0 First degree hemorrhoids; I25.10 Atherosclerotic heart disease of native coronary artery without angina pectoris; I10 Essential (primary) hypertension; E78.5 Hyperlipidemia, unspecified; I50.9 Heart failure, unspecified; Z82.49 Family history of ischemic heart disease and other diseases of the circulatory system; Z72.0 Tobacco use; Z79.82 Long term (current) use of aspirin; Z79.899 Other long term (current) drug therapy
CPT/HCPCS: 45380; 45385; 88305; J2704

== ENCOUNTER → 2021-05-20 13:48 | Outpatient (CLI) | payer MEDICARE, BC, SELFPAY | PROVIDERS: PCP Family Medicine; Visit Provider Nurse Practitioner Family | DX: G47.33 Obstructive sleep apnea (adult) (pediatric) (principal) | CPT/HCPCS: 94762 ==

== ENCOUNTER → 2021-08-11 09:23 | Outpatient (CLI) | payer MEDICARE, BC, SELFPAY ==
--- NOTE | 2021-08-11 09:35 | US_ITS ---
FINAL REPORT CLINICAL HISTORY: AAA FINDINGS: ULTRASOUND AORTA Limited sonographic images were obtained of the abdominal aorta and iliac arteries. The abdominal aorta measures up to 2.4 cm in greatest dimensions. The iliac arteries are within normal limits. IMPRESSION: No evidence of aneurysm. Reviewed, Interpreted and Dictated by Mika Natarajan III, MD Transcribed by Carl Torres Authenticated by Mika Natarajan III, MD on 08/11/2021 04:01:02 PM [facility]
--- NOTE | 2021-08-11 09:36 | CT_ITS ---
FINAL REPORT CLINICAL HISTORY: H/O NICOTINE DEPENDENCE smoker. 3packs a week. .5ppd x40 years CAD, CHF COMPARISON: February 28, 2020 FINDINGS: Low-Dose Chest CT CTDI vol (mGy): 2.90 DLP (mGy-cm): 106.55 Axial images were obtained from the lung apex to the mid abdomen by computed tomography. Low-dose protocol was utilized. There is no axillary adenopathy. There is no hilar or mediastinal adenopathy. The heart is proper size. There is no pericardial or pleural effusion. Limited images of the upper abdomen demonstrates a left adrenal nodule which is likely an adenoma. Lung window images demonstrate no suspicious infiltrate or nodule. There are several calcified granulomas. There are mild changes of emphysema. IMPRESSION: No suspicious infiltrate or nodule is identified. Lung RADS category 1. Recommend 12 month follow-up low-dose chest CT. Reviewed, Interpreted and Dictated by Mika Natarajan III, MD Transcribed by Tamanna Zayas Authenticated by Mika Natarajan III, MD on 08/11/2021 11:13:08 AM [facility]
== END ==
PROVIDERS: PCP Family Medicine; Visit Provider Family Medicine
DX: Z87.891 Personal history of nicotine dependence (principal); Z12.2 Encounter for screening for malignant neoplasm of respiratory organs; Z13.6 Encounter for screening for cardiovascular disorders
CPT/HCPCS: 71271; 76705

== ENCOUNTER → 2022-02-17 12:47 | Outpatient (CLI) | payer MEDICARE, BC, SELFPAY ==
--- NOTE | 2022-02-17 | US_ITS ---
FINAL REPORT CLINICAL HISTORY: SMOKER, DISCOLORED LEFT TOES, HTN,HLD FINDINGS: ANKLE-BRACHIAL PRESSURE INDICES Pressure indices are as follows: RIGHT LOWER EXTREMITY: Ankle-brachial pressure index: 1.0 Comments: Normal LEFT LOWER EXTREMITY: Ankle-brachial pressure index: 1.0 Comments: Normal CONCLUSION: No evidence of significant obstructive peripheral vascular disease of the lower extremities Reviewed, Interpreted and Dictated by Mika Natarajan III, MD Transcribed by Tamanna Zayas Authenticated and [facility]
== END ==
PROVIDERS: PCP Family Medicine; Visit Provider Family Medicine
DX: R09.89 Other specified symptoms and signs involving the circulatory and respiratory systems (principal)
CPT/HCPCS: 93923

== ENCOUNTER → 2022-08-06 14:18 | Outpatient (CLI) | payer MEDICARE, BC, SELFPAY ==
--- NOTE | 2022-08-06 14:27 | CT_ITS ---
FINAL REPORT TECHNIQUE: Axial images were obtained from the lung apex to the mid abdomen by computed tomography. This study was performed with techniques to keep radiation doses as low as reasonably achievable (ALARA). Individualized dose reduction techniques using automated exposure control or adjustment of mA and/or kV according to the patient's size were employed. CLINICAL HISTORY: H/O TOBACCO USE, smokes 1/2 pk per day x 20 yrs cad COMPARISON: 08/11/2021 FINDINGS: CHEST CT LOW DOSE CTDI vol (mGy): 2.90 DLP (mGy-cm): 114.11 There is no axillary adenopathy. There is no hilar or mediastinal adenopathy. The heart is normal in size. There is no pericardial or pleural effusion. Lung window images demonstrate no suspicious infiltrate or nodule. There are several calcified granulomas. There is a nodule near the minor fissure measuring 4 mm which is stable, favor an intra fissural node. Limited images of the upper abdomen are unremarkable. IMPRESSION: Lung RADS category 1. Recommend 12 month follow-up low-dose chest CT. Reviewed, Interpreted and Dictated by Mika Natarajan III, MD Transcribed by Silvia Kirk Authenticated and [facility]
== END ==
PROVIDERS: PCP Family Medicine; Visit Provider Family Medicine
DX: Z87.891 Personal history of nicotine dependence (principal); Z12.2 Encounter for screening for malignant neoplasm of respiratory organs
CPT/HCPCS: 71271

== ENCOUNTER 2023-05-04 13:37 | Outpatient (CLI) | payer MEDICARE, BC, SELFPAY ==
[2023-05-04 13:54] LABS: Basophils % 0.5 % (0.1-2.0); Eosinophils # 0.2 K/mm3 (0.0-0.4); Eosinophils % 3.8 % (0.1-12.0); Hematocrit 52.3 % (42.0-52.0); Hemoglobin 16.8 g/dL (14.1-18.0); Lymphocytes # 1.2 K/mm3 (0.7-4.5); Lymphocytes % 23.4 % (10-50); Mean Corpuscular HGB Conc 32.1 g/dL (31.8-35.4); Mean Corpuscular Hemoglobin 32.6 pg (27.0-31.2); Mean Corpuscular Volume 101.4 fl (80-94); Mean Platelet Volume 8.6 fl (7.4-10.4); Monocytes # 0.3 K/mm3 (0.1-1.0); Monocytes % 6.1 % (1.7-9.3); Neutrophils # 3.5 K/mm3 (1.8-7.8); Neutrophils % 66.1 % (37.0-80.0); Platelet Count 139 K/mm3 (142-424); Red Blood Count 5.15 M/mm3 (4.60-6.20); Red Cell Distribution Width 14.6 % (11.5-17.5); White Blood Count 5.2 K/mm3 (4.8-10.8)
[2023-05-04 14:28] LABS: Chloride 104 mmol/L (98-107); Potassium 3.9 mmoL/L (3.5-5.1); Sodium 137 mmol/L (136-145)
[2023-05-04 14:30] LABS: Alanine Aminotransferase 33 U/L (12-78); Alkaline Phosphatase 100 U/L (38-126); Aspartate Amino Transferase 32 U/L (17-59); Bilirubin,Direct 0.1 mg/dl (0.0-0.4); Bilirubin,Indirect 0.9 mg/dL (0.0-0.9); Bilirubin,Unconjugated 0.9 mg/dL (0.0-1.1); Blood Urea Nitrogen 14 mg/dl (9-20); Estimated Glomerular Filt Rate 96 ml/min (>60); GFR (African American) 117 ML/MIN (>60)
[2023-05-04 14:31] LABS: Albumin Level 4.2 g/dl (3.5-5.0); Anion Gap 6.9 mEq/L (5-15); Calcium 9.2 mg/dl (8.4-10.2); Carbon Dioxide 30 mmol/L (22.0-30.0); Chol/HDL Ratio 2.9 (1-3.5); Cholesterol 138 mg/dl (140-200); Glucose 91 mg/dl (74-100); HDL Cholesterol 48 mg/dl (40-60); Magnesium 2.1 mg/dl (1.6-2.3); Total Protein,Serum 6.9 g/dl (6.3-8.2); Triglycerides 120 mg/dl (30-150); VLDL Cholesterol 24 mg/dL (0-40)
[2023-05-04 14:42] LABS: Direct LDL Cholesterol 62.28 mg/dL (100-129)
[2023-05-04 15:03] LABS: Thyroid Stimulating Hormone 3.68 uIU/mL (0.465-4.68)
== END 2023-05-04 23:59 ==
LOC: LAB 13:38
PROVIDERS: PCP Family Medicine; Visit Provider Nurse Practitioner Family
DX: I11.9 Hypertensive heart disease without heart failure (principal); I25.10 Atherosclerotic heart disease of native coronary artery without angina pectoris; E78.5 Hyperlipidemia, unspecified; R94.31 Abnormal electrocardiogram [ECG] [EKG]; Z87.891 Personal history of nicotine dependence
CPT/HCPCS: 36415; 80048; 80061; 80076; 83735; 84439; 84443; 85025

== ENCOUNTER 2024-05-08 08:42 | Outpatient (CLI) | payer MEDICARE, SELFPAY ==
--- NOTE | 2024-05-08 08:48 | CA_ITS ---
APPROVED REPORT EXAM: Comprehensive 2D, Doppler, and color-flow Echocardiogram Clinical Technician: Carol Park CRT Ht: 5 ft 9 in Wt: 186lbs BSA: 2.00 BP: 118/49 mmHg Indications: Shortness of Breath, CAD, Hyperlipidemia, Hypertension/HDD, CM, ABN EKG, 5 STENTS 05/04, 2D Dimensions LA Volume 32.30 mL LA Volume Index 15.80 mL/m2 (M/F) 16-34 M-Mode Dimensions RVDd 3.00 cm (0.9-2.6) LA Diam 3.78 cm (1.9-4.0) LVDd 4.67 cm (3.5-5.7) LVDs 2.46 cm (3.5-5.7) IVSd 1.78 cm (0.6-1.1) PWd 0.93 cm (0.6-1.1) EF (Teich) 78.80% FS 47.30% EDV (Teich) 100.80 mL TAPSE 2.56 (<1.7) ESV (Teich) 21.40 mL LV Diastology E Decel Time 150 (160-240 msec) E/A Ratio 3.94 MED A' 10.00 cm/s LAT A' 8.00 cm/s Aortic Valve AO Peak GR. 6.30 mmHg Mitral Valve MV E Max Sumeet. 87.0 (40-130 cm/s) MV A Velocity 22.0 (40-130 cm/s) E/A Ratio 3.94 MV PHT 44.0 ms Pulmonary Valve PV Peak Velocity 97.0 (50-150 cm/s) Tricuspid Valve TR P. Velocity 170.00 cm/s RAP Estimate 10.00 mmHg RVSP 21.60 mmHg Left Ventricle The left ventricle is normal size. The left ventricular systolic function is normal. The left ventricular ejection fraction is within the normal range. There is increased LV wall thickness There is normal LV segmental wall motion. The left ventricular diastolic function is normal. LVEF is 55%. Right Ventricle The right ventricle is normal size. The right ventricular systolic function is normal. Atria The left atrium size is normal. The right atrium size is normal. There is no Doppler evidence of interatrial shunt. Aortic valve is mildly thickened. Aortic Valve There is no aortic valvular stenosis. No aortic regurgitation is present. Mitral Valve The mitral valve is normal in structure. No evidence of mitral valve stenosis. Trace mitral regurgitation. Tricuspid Valve Tricuspid valve is grossly normal in structure and function. Trace tricuspid regurgitation. There is insufficient TR jet to estimate RVSP. Pulmonic Valve The pulmonary valve is normal in structure. Trace pulmonic regurgitation. Great Vessels The aortic root is normal in size. IVC is normal in size and collapses >50% with inspiration. Pericardium There is no pericardial effusion. Other Information Study Quality: Adequate Conclusion Normal biventricular systolic function. . No significant valvular stenosis or regurgitation. Electronically signed by : Nancy Weaver MD 05/13/2024 22:23:54
== END 2024-05-08 23:59 | disposition home or self-care (01) ==
LOC: RT 08:44
PROVIDERS: PCP Family Medicine; Visit Provider Nurse Practitioner
DX: I10 Essential (primary) hypertension (principal); I25.118 Atherosclerotic heart disease of native coronary artery with other forms of angina pectoris; Z95.5 Presence of coronary angioplasty implant and graft; I73.00 Raynaud's syndrome without gangrene; R94.31 Abnormal electrocardiogram [ECG] [EKG]; E78.5 Hyperlipidemia, unspecified; Z87.891 Personal history of nicotine dependence
CPT/HCPCS: 93306

== ENCOUNTER 2024-08-09 09:09 | Outpatient (CLI) | payer MEDICARE, SELFPAY ==
[2024-08-09 11:42] LABS: Albumin Level 4.1 g/dl (3.5-5.0); Chloride 107 mmol/L (98-107)
[2024-08-09 11:43] LABS: Potassium 4.4 mmoL/L (3.5-5.1); Sodium 141 mmol/L (136-145)
[2024-08-09 11:45] LABS: Alanine Aminotransferase 22 U/L (12-78); Albumin/Globulin Ratio 1.6 (1.1-1.8); Alkaline Phosphatase 80 U/L (38-126); Anion Gap 12.4 mEq/L (5-15); Aspartate Amino Transferase 24 U/L (17-59); Blood Urea Nitrogen 27 mg/dl (9-20); Carbon Dioxide 26 mmol/L (22.0-30.0); Estimated Glomerular Filt Rate 84 ml/min (>60); GFR (African American) 102 ML/MIN (>60); Globulin 2.6 g/dL (1.3-3.2); Total Protein,Serum 6.7 g/dl (6.3-8.2)
[2024-08-09 11:46] LABS: Calcium 8.8 mg/dl (8.4-10.2); Chol/HDL Ratio 2.5 (1-3.5); Cholesterol 134 mg/dl (140-200); Glucose 107 mg/dl (74-100); HDL Cholesterol 53 mg/dl (40-60); Triglycerides 143 mg/dl (30-150); VLDL Cholesterol 29 mg/dL (0-40)
[2024-08-09 11:57] LABS: Direct LDL Cholesterol 54.84 mg/dL (100-129)
[2024-08-09 12:40] LABS: Prostate Specific Ag Screen 3.4 ng/ml (0.0-4.0)
== END 2024-08-09 23:59 | disposition home or self-care (01) ==
LOC: LAB 09:10
PROVIDERS: PCP Family Medicine; Visit Provider Family Medicine
DX: E78.5 Hyperlipidemia, unspecified (principal); I25.10 Atherosclerotic heart disease of native coronary artery without angina pectoris; R73.01 Impaired fasting glucose; Z12.5 Encounter for screening for malignant neoplasm of prostate
CPT/HCPCS: 36415; 80053; 80061; 83036; G0103

== ENCOUNTER 2024-11-05 06:50 | Day surgery (SDC) | payer MEDICARE, SELFPAY ==
[2024-11-01 14:43] VITALS: BMI 26.4
[2024-11-05] VITALS (8 sets, daily range): BP systolic 110–134; BP diastolic 59–82; PULSE 71–90; RESP 16–18; TEMP 36.2; O2SAT 92–100
[2024-11-05] MEDS: LACTATED RINGERS 1000ML 1,000 ML 50 ML IV (07:21)
--- NOTE | 2024-11-05 07:50 | P.PNANES_ITS ---
[facility] Disclaimer: The information contained in this section may have been updated after the patient was seen, as this information can be updated by other users. Medical History Hypertension Elevated left ventricular end-diastolic pressure (LVEDP) Chest pain Crescendo angina Daytime somnolence Snoring CAD (coronary artery disease) HLD (hyperlipidemia) PVC (premature ventricular contraction) Abnormal EKG Tobacco dependence syndrome Family history of heart disease Cardiomyopathy Atypical angina Abnormal cardiovascular stress test Surgical History History of neck surgery H/O heart artery stent Family History Other Coronary artery disease Diabetes Heart attack Hypertension Stroke Social History Smoking Status: Former smoker smoking status start date: 1974 second hand exposure: Yes alcohol intake: never counseling provided: other substance use type: denies use current occupational status: retired Travel in the last 8 weeks?: None adopted: No household members: none housing: house lives independently: Yes marital status: number of children: 2 number of grandchildren: 2 current occupational exposures/hazards: No caffeine: Yes Have you lived/traveled outside US in past 30 days?: No Contact w/someone who lives/traveled outside US past 30 days?: No Exposure to someone with infectious disease in past 14 days?: No Do you have a fever (greater than 100.4 F or 38 C)?: No Have you tested positive for COVID-19?: No Exposed to someone with COVID-19 in past 14 days?: No Do you have a sore throat?: No Do you have a cough?: No Do you have any weakness?: No Do you have any diarrhea?: No Are you experiencing any unusual bleeding?: No Do you have any muscle aches/pain?: No Do you have any abdominal pain?: No Are you experiencing loss of taste or smell?: No [facility] Anesthesia Checklist Patient Identification Patient Identification: Arm Band Structural Data Admitted From: Home Planned Operative Procedure/s: Colonoscopy Consent for Planned Operative Procedure(s) Verified: Yes Verified Documents: Surgical Consent and History and Physical NPO Status Verified Time NPO: 05:00 (finished prep) Additional verifications Anesthesia Reactions: No Airway Assessment Mallampati Score:: Class II C-Spine Mobility Assessed: Yes TMJ Mobility Assessed: Yes Dentition: Good Dentition Neurological Assessment Level of Consciousness: Awake, Alert and Appropriate Anesthesia Plan Anesthesia Risk discussed: Yes Anesthesia Plan: Verified ASA Class: III Anesthesia Type: MAC
--- NOTE | 2024-11-05 08:01 | EXP.HP ---
History of Present Illness *Admission Date: 11/05/24 *History of present illness: Mr. Carrillo is a 69-year-old gentleman who is here for follow-up screening/surveillance colonoscopy secondary to a personal history of an adenomatous colon polyp. The examination is deemed medically necessary for surveillance colonoscopy. The patient has been seen, interviewed and examined prior to the procedure by both myself and the anesthesia provider. [facility] Disclaimer: The information contained in this section may have been updated after the patient was seen, as this information can be updated by other users. Medical History (Updated 11/05/24 @ 08:03 by Darell Rondon II, MD) Hypertension Elevated left ventricular end-diastolic pressure (LVEDP) Chest pain Crescendo angina Daytime somnolence Snoring CAD (coronary artery disease) HLD (hyperlipidemia) PVC (premature ventricular contraction) Abnormal EKG Tobacco dependence syndrome Family history of heart disease Cardiomyopathy Atypical angina Abnormal cardiovascular stress test Surgical History History of neck surgery H/O heart artery stent Family History Other Coronary artery disease Diabetes Heart attack Hypertension Stroke Social History Smoking Status: Former smoker smoking status start date: 1974 second hand exposure: Yes alcohol intake: never counseling provided: other substance use type: denies use current occupational status: retired Travel in the last 8 weeks?: None adopted: No household members: none housing: house lives independently: Yes marital status: number of children: 2 number of grandchildren: 2 current occupational exposures/hazards: No caffeine: Yes Have you lived/traveled outside US in past 30 days?: No Contact w/someone who lives/traveled outside US past 30 days?: No Exposure to someone with infectious disease in past 14 days?: No Do you have a fever (greater than 100.4 F or 38 C)?: No Have you tested positive for COVID-19?: No Exposed to someone with COVID-19 in past 14 days?: No Do you have a sore throat?: No Do you have a cough?: No Do you have any weakness?: No Do you have any diarrhea?: No Are you experiencing any unusual bleeding?: No Do you have any muscle aches/pain?: No Do you have any abdominal pain?: No Are you experiencing loss of taste or smell?: No Other Medical History Have you received the Flu Vaccine for this season: Yes Have you received the Pneumonia Vaccine: Yes Review of Systems Review of Systems Review of systems (narrative): Negative *Cardiovascular Comments: Negative *Gastrointestinal Comments: Negative *Genitourinary Comments: Negative *Musculoskeletal Comments: Negative *Neurologic Comments: Negative Meds Home Medications and Allergies Home Medications ?Medication ?Instructions ?Recorded ?Confirmed ?Type aspirin 81 mg chewable tablet 81 mg PO DAILY Heart disease 04/08/20 11/05/24 History naproxen 500 mg tablet 500 mg PO BID Pain 02/04/21 11/05/24 History nitroglycerin 0.4 mg sublingual 0.4 mg sublingual Q5M PRN chest 11/03/22 11/05/24 Rx tablet pain #20 tabs amlodipine 5 mg tablet 5 mg PO DAILY #90 tabs 05/03/24 11/05/24 Rx atorvastatin 80 mg tablet See Rx Instructions .Route 05/03/24 11/05/24 Rx .COMPLEX #90 tabs furosemide 20 mg tablet 20 mg PO DAILY #90 tabs 05/03/24 11/05/24 Rx metoprolol succinate 50 mg 50 mg PO DAILY #90 tabs 05/03/24 11/05/24 Rx tablet,extended release 24 hr pantoprazole 40 mg tablet,delayed 40 mg PO DAILY #90 tabs 05/03/24 11/05/24 Rx release ramipril 2.5 mg capsule 2.5 mg PO DAILY #90 caps 05/03/24 11/05/24 Rx ranolazine 1,000 mg 1,000 mg PO BID #180 tabs 05/03/24 11/05/24 Rx tablet,extended release,12 hr New Prescriptions to Start Prescriptions: Allergies Allergy/AdvReac Type Severity Reaction Status Date / Time No Known Allergies Allergy Verified 10/31/24 10:12 Exam Data for Last 24 hours Vital signs and Labs for Last 24 Hours: Temp Pulse Resp BP Pulse Ox O2 Del Method 97.2 F L 88 18 127/73 98 Room Air 11/05/24 07:23 11/05/24 07:23 11/05/24 07:23 11/05/24 07:23 11/05/24 07:23 11/05/24 07:23 *Routine HEENT Exam Head: Present normocephalic Eye: Present EOMI and PERRL ENT: Present mucous membranes moist *Routine Neck Exam Neck: Present supple *Routine Respiratory Exam Respiratory: Present CTA bilaterally *Routine Cardiovascular Exam Cardiovascular: Present RRR *Routine Abdominal Exam Abdominal: Present soft and normoactive bowel sounds; Absent tenderness *Routine Rectal Exam Rectal:: deferred *Routine Genitalia Exam Genitalia:: deferred *Routine Extremities Exam Extremities: Absent cyanosis, clubbing or edema *Routine Skin Exam Skin: Present warm; Absent rash *Routine Neurological Exam Neurological: Present alert and oriented X3 Assessment and Plan *Assessment and plan (1) Personal history of adenomatous and serrated colon polyps: Status: Acute Category: Medical Code(s): Z86.0101 - Personal history of adenomatous and serrated colon polyps (2) Screening for colon cancer: Status: Acute Category: Medical Code(s): Z12.11 - Encounter for screening for malignant neoplasm of colon Plan A/P: 1. Personal history of adenomatous colon polyp is the preprocedural diagnosis. The patient had a colonoscopy in February 2021 and had 3 polyps (tubular adenoma x 1/hyperplastic polyps x 2) by Dr. Cory Vera M.D. The patient will be anesthetized/sedated using MAC sedation. The patient has been seen and examined. Cardiac and lung assessment prior to the examination is stable. Proceed with planned screening/surveillance colonoscopy.
--- NOTE | 2024-11-05 08:37 | P.PCN_ITS ---
[facility] Procedure Note Date: 11/05/24 Time: 08:57 Procedure Note:: Colonoscopy Procedure Report: Colonoscopy with cold snare polypectomy Endoscopist: Darell Rondon II, MD Referring physician: Daniel Lawson MD Date of Procedure: November 05, 2024 Equipment: Olympus [id number] adult colonoscope Sedation: MAC sedation Indication: Mr. Carrillo is a 69-year-old gentleman who previously had a positive Cologuard test and had a colonoscopy (Cory Vera M.D.) in February 2021. At that time, the colonoscopy description was profound spasticity/lack of relaxation with bowel preparation fair to moderate. Polyps were removed but examination report also indicated he would possibly need barium enema. 3 polyps were removed and the pathology was tubular adenoma x 1 and hyperplastic polyps x 2). It was recommended that he repeat colonoscopy within 1 to 2 years. The patient reports no abdominal pain, weight loss, change in his bowel habits or rectal bleeding. He reports no family history of colon cancer. Procedure: Prior to the procedure, a history and physical exam was performed, and patient's medications and allergies were reviewed. The risks, benefits and alternatives of the sedation and procedure were discussed with the patient. All questions were answered and informed consent was obtained. The patient was brought to the procedure room. Patient identification and proposed procedure were verified by the physician and the nurse. The patient was placed in a left lateral decubitus position and the scope was passed under direct vision. Throughout the procedure, the patient's blood pressure, pulse, and oxygen saturations were monitored continuously. The colonoscopy was accomplished without difficulty. The patient tolerated the procedure well. Findings: On digital rectal examination there was normal rectal tone. There were no external hemorrhoids. The prostate was 2-3+, mildly enlarged and firm without nodules. The colonoscope was introduced through the anal canal to the rectum and advanced to the cecum. The ileocecal valve and appendiceal orifice were identified. The scope was advanced a short distance into the ileum which appeared grossly normal. The scope was then withdrawn into the colon. There were 4 polyps (transverse x 2 (4 and 4 mm) and descending x 2 (3 and 4 mm)). These were all removed via cold snare polypectomy. The remaining cecum, ascending and transverse colon and mucosa were grossly normal. There were scattered diverticuli throughout the descending and sigmoid colon (LEFT colon). The rectum itself was normal. Upon retroflexion within the rectum there were grade 1-2 internal hemorrhoids. The preparation was excellent throughout with [place] Preparation Score of 9. The cecal time was 12 minutes. Impression: 1. Diminutive colonic polyps x 4 2. Left-sided diverticulosis 3. Grade 1-2 internal hemorrhoids Plan: I will follow-up the polyp histology and recommend repeat surveillance colonoscopy again in 5 to 7 years based upon the pathology. I would encourage psyllium bulking fiber supplementation on a maintenance basis.
--- NOTE | 2024-11-05 09:15 | ECG_ITS ---
APPROVED REPORT Exam: Resting ECG HR:86 bpm ECG Measurements Heart Rate 86 AXES VA 181 P 65 QRSd 128 QRS 264 QT 385 T 64 QTc 429 Conclusion SINUS RHYTHM WITH FREQUENT VENTRICULAR PREMATURE COMPLEXES RIGHT AXIS DEVIATION [QRS AXIS > 100] RIGHT BUNDLE BRANCH BLOCK [120+ ms QRS DURATION, UPRIGHT V1, 40+ ms S IN I/aVL/V4/V5/V6] SEPTAL MYOCARDIAL INFARCTION , OF INDETERMINATE AGE [40+ ms Q WAVE IN V1/V2] INFERIOR MYOCARDIAL INFARCTION , PROBABLY OLD [40+ ms Q WAVE AND/OR ST/T ABNORMALITY IN II/aVF] ABNORMAL ECG UNCONFIRMED REPORT Electronically signed by : Kam Marin MD 11/07/2024 08:44:19
== END 2024-11-05 10:10 | disposition home or self-care (01) ==
PROVIDERS: PCP Family Medicine; Visit Provider Internal Medicine Gastroenterology
PROC: 0DJD8ZZ Inspection of Lower Intestinal Tract, Via Natural or Artificial Opening Endoscopic (ICD-10-PCS; CPT 45378; principal; 2024-11-05 08:30)
DX: Z12.11 Encounter for screening for malignant neoplasm of colon (principal); D12.4 Benign neoplasm of descending colon; D12.3 Benign neoplasm of transverse colon; K57.30 Diverticulosis of large intestine without perforation or abscess without bleeding; K64.0 First degree hemorrhoids; K64.1 Second degree hemorrhoids; Z86.0101 Personal history of adenomatous and serrated colon polyps; I25.10 Atherosclerotic heart disease of native coronary artery without angina pectoris; E78.5 Hyperlipidemia, unspecified; I10 Essential (primary) hypertension; Z87.891 Personal history of nicotine dependence; Z79.82 Long term (current) use of aspirin; Z79.899 Other long term (current) drug therapy
CPT/HCPCS: 45385; 93005; J2003; J2704; J7120

== ENCOUNTER 2025-01-31 13:27 | Outpatient (CLI) | payer MEDICARE, SELFPAY ==
--- NOTE | 2025-01-31 13:30 | MR_ITS ---
FINAL REPORT CLINICAL HISTORY: LUMBAR RADICUOPATHY COMPARISON: None FINDINGS: Multiplanar MR imaging of the lumbar spine was performed without contrast. On the sagittal T2-weighted images, there is abnormal decreased signal in the L2-3, L3-4, L4-5, and L5-S1 discs. There is moderate loss of height of the L2-3 through L5-S1 discs. The vertebrae are of normal height. The vertebral alignment is normal. L1-2: There is no significant canal stenosis or neural foraminal narrowing. L2-3: There is a left posterolateral disc protrusion with mild left neural foraminal narrowing. L3-4: A moderate annular bulge is present with moderate canal stenosis and bilateral neural foraminal narrowing. L4-5: A moderate bulge is present with severe canal stenosis and a right paracentral disc extrusion or fragment, best seen on image #19 of series 5 and image 8 of series 2. There is moderate compression of the right lateral recess by disc fragment. In addition, there is prominent fat in the posterior canal at this level, extending from the L3-4 through the L5-S1 levels, that may represent epidural lipomatosis. This contributes to the canal stenosis at this level. L5-S1: A moderate annular bulge is present with endplate hypertrophy, moderate to severe right and severe left neural foraminal narrowing. IMPRESSION: Multilevel lumbar degenerative changes present, most pronounced at the L4-5 level, where there is severe canal stenosis secondary to a right paracentral disc extrusion or fragment, as well as prominent fat in the posterior canal as described above. Reviewed, Interpreted and Dictated by Gael Shoemaker MD Transcribed by Edda Leung Authenticated and [facility]
--- OUTSIDE RECORDS SUMMARY | 2025-01-31 16:17 | XMS_ITS | Clinical Summary ---
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 Not on file 02/2023 Does Anyone Keep You from Co ntacting Others or Doint Things Outside the Home? Not on file 12/23/2022 Physical Sign of Abuse Present Not on file 1 Housing Stability Answer Date Recorded Current Living Arrangements Not on file 12/12 Potentially Unsafe Housing Conditions Not on kirstin e 12/23/2022 Family and Community Support Answer Donte e Recorded Help with Day-to-Day Activities Not on file 12/23/2022 Lonely or Isolated Not on file 12/23/2022 Employment Answer Date Recorded Do you want help finding or keeping work or a paul b? Not on file 12/23/2022 Disabilities Answer Date Recorded Concentrating, Remembering, or Making Decisions Difficulty Not on file 12/23/2022 Doing Errands Independently Difficulty Not on fi le 12/23/2022 Education Answer Date Recorded Help with school or training? Not on file Preferred Language Not on file 12/23/2022 Sex and Gender Information Value Date Recorded Sex Assigned at Not on file Legal Sex Male 12:47 PM EDT Gender Identity Not on file Sexual Orientation Not on file Plan of Treatment Health Maintenance Due Date Last Done Comments TDAP/TD VACCINES (1 - Tdap) 1975 COLOGUARD 2001 COLON CANCER SCREENING 5 YEAR SIGMOIDOSCOPY 2001 COLONOSCOPY [address]ER SCREENING [address] COLONOGRAPHY 2001 FECAL OCCULT BLOOD TEST 2001 FIT Testing (1 year) 2001 Pneumococcal Vaccine 50+ (1 of 1 - PCV) 2006 ZOSTER VACCINE (1 of 2) 2006 ANNUAL PHYSICAL 01/07/2018 HEPATITIS C SCREENING 01/07/2018 AAA SCREEN ONCE 2021 INFLUENZA VACCINE 10/12/2024 COVID-19 Vaccine ( season) 2024 Insurance [facility] [employer] PPO Care Teams Cube Machine Tender Relationship Specialty Start Date End Date Tony Lawson MD [address] [facility] [address] [facility] [place] [id number] PCP - General Family Medicine 01/07/18
== END 2025-01-31 23:59 | disposition home or self-care (01) ==
PROVIDERS: PCP Family Medicine; Visit Provider Family Medicine
DX: M48.061 Spinal stenosis, lumbar region without neurogenic claudication (principal); M51.16 Intervertebral disc disorders with radiculopathy, lumbar region; M51.379 Other intervertebral disc degeneration, lumbosacral region without mention of lumbar back pain or lower extremity pain
CPT/HCPCS: 72148